=== PATIENT | female | born 1995 | race Caucasian/White ===

== ENCOUNTER 2024-02-09 05:08 | Inpatient (IN) | payer OTHER ==
[~2024-02-09] VITALS: Ht 154.9 cm; Wt 104.8 kg
[2024-02-09 05:25] VITALS: BP 116/64
[2024-02-09] MEDS ORDERED: CEFAZOLIN SODIUM 1,000 MG VIAL IV SCH ×2 (05:30→12:00)
[2024-02-09] MEDS ORDERED: PRENATAL + DHA1 EAC1 PO (06:08)
[2024-02-09] MEDS ORDERED: HYDROXYCHLOROQ200 MG PO (06:09)
[2024-02-09 06:18] VITALS: BP 105/57; O2SAT 96
[2024-02-09] MEDS ORDERED: ERYTHROMYCIN BASE OPHT 1GM EACH TUBE OP ONE (09:15)
[2024-02-09] MEDS ORDERED: OXYTOCIN 10 UNITS/ML VIAL IV ONE (09:15)
[2024-02-09] MEDS ORDERED: CARBOPROST TROMETHAMINE 250 MCG/ML AMPUL IM ONE (09:15)
[2024-02-09] MEDS ORDERED: MORPHINE SULFATE 4 MG/ML VIAL IV ONE (10:25)
[2024-02-09] MEDS ORDERED: MEPERIDINE HCL/PF 50 MG/ML VIAL IM SCH (10:30)
[2024-02-09] MEDS ORDERED: MEPERIDINE HCL/PF 25 MG,MEPERIDINE HCL/PF 50 MG IM SCH (11:00)
[2024-02-09] MEDS ORDERED: PROMETHAZINE HCL 25 MG/ML AMPUL IV SCH (12:00)
[2024-02-09 12:55] VITALS: BP 96/66
[2024-02-09 16:15] VITALS: BP 121/77
[2024-02-09 20:36] VITALS: BP 113/70
[2024-02-10 00:23] VITALS: BP 121/76
[2024-02-10 07:24] LABS: HEMATOCRIT 28.8 % (36.0-45.00); HEMOGLOBIN 9.8 g/dL (12.0-15.00); MEAN CELL VOLUME 83.2 fL (80.00-100.00); MEAN CORPUSCULAR HEMOGLOBIN 28.2 pg (27.00-32.0); MEAN CORPUSCULAR HGB CONC 33.9 g/dl (32.0-36.0); PLATELET COUNT 155 K/uL (150-450); RED BLOOD COUNT 3.47 M/uL (4.00-6.00); RED CELL DISTRIBUTION WIDTH 16.6 % (11.5-14.5)
[2024-02-10 08:00] VITALS: BP 108/70
[2024-02-10] MEDS ORDERED: OxyCODONE HCL/APAP UD (PERCOCET) PO PRN (08:00)
[2024-02-10] MEDS ORDERED: IRON FUM,PS/FOLIC/BCOMP,C NO.9 1 CAP CAPSULE PO STA (11:26)
[2024-02-10] MEDS ORDERED: HYDROXYCHLOROQUINE SULFATE 200 MG TABLET PO STA (11:27)
[2024-02-10 14:51] VITALS: BP 109/69
[2024-02-10] MEDS ORDERED: IRON FUM,PS/FOLIC/BCOMP,C NO.9 1 CAP CAPSULE PO SCH (17:00)
[2024-02-10] MEDS ORDERED: HYDROCORTISONE 2.5% 30 GM TUBE RECTAL SCH (21:19)
[2024-02-11] VITALS: BP 125/75
[2024-02-11 07:52] LABS: HEMATOCRIT 28.5 % (36.0-45.00); HEMOGLOBIN 9.7 g/dL (12.0-15.00); MEAN CELL VOLUME 83.8 fL (80.00-100.00); MEAN CORPUSCULAR HEMOGLOBIN 28.5 pg (27.00-32.0); PLATELET COUNT 172 K/uL (150-450); RED CELL DISTRIBUTION WIDTH 16.4 % (11.5-14.5)
[2024-02-11 08:00] VITALS: BP 113/70
[2024-02-11] MEDS ORDERED: HYDROXYCHLOROQUINE SULFATE 200 MG TABLET PO SCH ×2 (09:00→11:15)
[2024-02-11] MEDS ORDERED: IRON FUM,PS/FOLIC/BCOMP,C NO.9 1 CAP CAPSULE PO SCH (11:04)
== END 2024-02-11 11:30 | disposition home or self-care (01) | DRG 788 ==
LOC: OB/GYN 05:08 → LDR 05:08 → O/R 09:18 → OB/GYN 10:23
PROVIDERS: ADMIT Specialist; ATTEND Specialist
PROC: 0DNW0ZZ Release Peritoneum, Open Approach (ICD-10-PCS; 2024-02-09)
PROC: 4A1HXCZ Monitoring of Products of Conception, Cardiac Rate, External Approach (ICD-10-PCS; 2024-02-09)
PROC: 10D00Z1 Extraction of Products of Conception, Low, Open Approach (ICD-10-PCS; principal; 2024-02-09 08:00)
DX: O99.892 Other specified diseases and conditions complicating childbirth (principal); N73.6 Female pelvic peritoneal adhesions (postinfective); O34.211 Maternal care for low transverse scar from previous cesarean delivery; Z3A.37 37 weeks gestation of pregnancy; Z37.0 Single live birth; Z20.822 Contact with and (suspected) exposure to COVID-19